=== PATIENT | female | born 2000 | race African-American/Black ===

== ENCOUNTER 2022-06-14 21:12 | Emergency (ER) | payer BC ==
[~2022-06-14] VITALS: Ht 162.6 cm; Wt 60.8 kg
[2022-06-14 22:15] VITALS: BP 128/70
[2022-06-14] MEDS ORDERED: CIPR7.5D9 LEFT EAR (22:27)
== END 2022-06-14 22:32 | disposition home or self-care (01) ==
LOC: ER 21:14
DX: H60.92 Unspecified otitis externa, left ear (principal); Z60.2 Problems related to living alone

== ENCOUNTER 2022-08-02 10:49 | Emergency (ER) | payer BC ==
[~2022-08-02] VITALS: Ht 160 cm; Wt 53.1 kg
[~2022-08-02 10:49] MED LIST: CIPR7.5D9 LEFT EAR
--- NOTE | 2022-08-02 11:15 | NUR ---
C/O BILATERAL FLANK PAIN, "BURNING SENSATION" WHEN URINATING X 2 WEEKS, WHICH STARTED AT THE LOWER BACK CHARLI PAIN 11/23 DENIES VOMITING BUT NAUSEOUS.
--- NOTE | 2022-08-02 11:20 | NUR ---
PT PUT ON BED AND INTO BEDSIDE MONITOR, CHANGED INTO GOWN
--- NOTE | 2022-08-02 11:24 | NUR ---
URINE COLLECTED AND SENT TO LAB.
--- NOTE | 2022-08-02 11:43 | NUR ---
LMP JULY 6 X 6DAYS REGULAR MONTHLY
[2022-08-02 12:03] LABS: BILIRUBIN,URINE 2+ (NEGATIVE); COLOR,URINE DARK YELLOW (YELLOW); LEUKOCYTE ESTERASE ,URINE 2+ (NEGATIVE); NITRITE, URINE POSITIVE (NEGATIVE); PROTEIN,URINE 2+ mg/dl (NEGATIVE); UGLUCOSE 1+ mg/dL (NEGATIVE); UROBILINOGEN,URINE >=8.0 EU/dL (0.2)
[2022-08-02 12:10] LABS: BACTERIA,URINE Moderate /HPF (None Seen); SQUAMOUS EPITHELIAL CELL,UR Few /HPF (None Seen); WBC,URINE 21-50 /HPF (0-3)
[2022-08-02] MEDS ORDERED: IBUPROFEN 600 MG TABLET PO ONE (12:30)
[2022-08-02] MEDS ORDERED: CEPHALEXIN MONOHYDRATE 500 MG CAPSULE PO ONE ×2 (12:30→12:46)
[2022-08-02] MEDS ORDERED: CEPH500C2 PO (12:41)
[2022-08-02] MEDS ORDERED: IBUPROFEN 600 MG TABLET ONE (12:47)
--- NOTE | 2022-08-02 12:48 | NUR ---
Patient discharged to home in stable condition. Written and verbal after care instructions given. Patient verbalizes understanding of instruction.
[2022-08-02 12:50] VITALS: BP 103/74
== END 2022-08-02 12:51 | disposition home or self-care (01) ==
LOC: ER 11:01
DX: N39.0 Urinary tract infection, site not specified (principal); R10.9 Unspecified abdominal pain; Z60.2 Problems related to living alone; Z79.899 Other long term (current) drug therapy
CPT/HCPCS: 76770-TC; 81001; 84703-TC; 87086-TC